=== PATIENT | female | born 1980 | race Caucasian/White ===

== ENCOUNTER 2017-02-14 15:11 | Emergency (ER) | payer MEDICAID ==
[~2017-02-14 15:11] MED LIST: CYMBALTA30 M1 PO; KLO0.5 PO; NEXIUM40 MG PO; NOR10T PO; REQUIP0.5 MG PO; SOM350 PO; ZANTAC 150150 MG PO; ZOL50 PO; ZOLOFT50 MG PO; [UNRECOGNIZED DRUG - CODE] PO
[2017-02-14 17:38] LABS: BASOPHIL % 0.4 % (0-2); PLATELET COUNT 282 x10^3mcL (130-400)
[2017-02-14 17:40] LABS: CARBON DIOXIDE 31.2 mmol/L (21-32); CHLORIDE SERUM 103 mmol/L (98-107); CREATININE SERUM 0.6 mg/dL (0.6-1.0); GFR1 > 60 mL/min; GLUCOSE SERUM 92 mg/dL (74-106); POTASSIUM SERUM 3.1 mmol/L (3.5-5.1); RED CELL DISTRIBUTION WIDTH 17.6 % (11.5-14.5); SODIUM SERUM 140 mmol/L (136-145)
[2017-02-14 17:44] LABS: ALBUMIN 3.5 g/dL (3.4-5.0); ALKALINE PHOSPHATASE 71 U/L (46-116); ALT/SGPT 26 U/L (14-59); AST/SGOT 23 U/L (15-37); BILIRUBIN TOTAL 0.29 mg/dL (0.20-1.00); MAGNESIUM 1.8 mg/dL (1.8-2.4); TOTAL PROTEIN, SERUM 6.8 g/dL (6.4-8.2)
[2017-02-14 19:09] VITALS: BP 122/76
== END 2017-02-14 19:09 | disposition home or self-care (01) ==
LOC: ED 15:11
PROVIDERS: Emergency Medicine
DX: M79.1 Myalgia (principal); E87.6 Hypokalemia; J45.909 Unspecified asthma, uncomplicated; G43.909 Migraine, unspecified, not intractable, without status migrainosus; Z88.0 Allergy status to penicillin
CPT/HCPCS: J1885

== ENCOUNTER 2017-04-24 18:34 | Emergency (ER) | payer MEDICAID ==
[~2017-04-24] VITALS: Ht 165.1 cm; Wt 122.9 kg
[2017-04-24 20:45] LABS: BASOPHIL % 0.4 % (0-2); PLATELET COUNT 254 x10^3mcL (130-400)
[2017-04-24 20:46] LABS: RED CELL DISTRIBUTION WIDTH 17.2 % (11.5-14.5)
[2017-04-24 21:09] LABS: ALBUMIN 3.5 g/dL (3.4-5.0); ALKALINE PHOSPHATASE 66 U/L (46-116); ALT/SGPT 38 U/L (14-59); AMYLASE 31 U/L (25-115); AST/SGOT 32 U/L (15-37); BILIRUBIN TOTAL 0.3 mg/dL (0.20-1.00); CALCIUM 9.1 mg/dL (8.5-10.1); CARBON DIOXIDE 27.9 mmol/L (21-32); CHLORIDE SERUM 102 mmol/L (98-107); CREATININE SERUM 0.7 mg/dL (0.6-1.0); GFR1 > 60 mL/min; GLUCOSE SERUM 99 mg/dL (74-106); LIPASE 104 IU/L (73-393); SODIUM SERUM 139 mmol/L (136-145); TOTAL PROTEIN, SERUM 6.8 g/dL (6.4-8.2)
[2017-04-24 21:11] LABS: POTASSIUM SERUM 2.7 mmol/L (3.5-5.1)
[2017-04-24 23:18] VITALS: BP 143/80
== END 2017-04-24 23:18 | disposition home or self-care (01) ==
LOC: ED 18:34
PROVIDERS: Emergency Medicine
DX: R11.10 Vomiting, unspecified (principal); R19.7 Diarrhea, unspecified; R10.9 Unspecified abdominal pain; G89.29 Other chronic pain; M54.9 Dorsalgia, unspecified; J45.909 Unspecified asthma, uncomplicated; Z88.0 Allergy status to penicillin
CPT/HCPCS: J2270; J2405; J2765; J7030

== ENCOUNTER 2017-06-06 16:08 | Emergency (ER) | payer MEDICAID ==
[2017-06-06 21:37] VITALS: BP 104/62
== END 2017-06-06 21:37 | disposition home or self-care (01) ==
LOC: ED 16:08
DX: G43.909 Migraine, unspecified, not intractable, without status migrainosus (principal); Z88.0 Allergy status to penicillin; Z79.899 Other long term (current) drug therapy
CPT/HCPCS: J1200; J1885; J2765; J3475; J3490; J7030

== ENCOUNTER 2017-06-14 17:56 | Emergency (ER) | payer MEDICAID ==
[~2017-06-14] VITALS: Ht 165.1 cm; Wt 120.2 kg
[2017-06-14 21:27] VITALS: BP 127/78
== END 2017-06-14 21:27 | disposition home or self-care (01) ==
LOC: ED 17:56
DX: G89.29 Other chronic pain (principal); M54.9 Dorsalgia, unspecified; J45.909 Unspecified asthma, uncomplicated; F41.9 Anxiety disorder, unspecified; F32.9 Major depressive disorder, single episode, unspecified; Z79.899 Other long term (current) drug therapy; Z88.0 Allergy status to penicillin; Z90.710 Acquired absence of both cervix and uterus; Z98.890 Other specified postprocedural states
CPT/HCPCS: J1885

== ENCOUNTER 2017-06-25 17:55 | Emergency (ER) | payer MEDICAID ==
[2017-06-25 19:26] VITALS: BP 108/64
== END 2017-06-25 19:26 | disposition home or self-care (01) ==
LOC: ED 17:55
DX: G43.909 Migraine, unspecified, not intractable, without status migrainosus (principal); Z79.899 Other long term (current) drug therapy; Z88.0 Allergy status to penicillin
CPT/HCPCS: J1100; J1885; J2765

== ENCOUNTER 2017-07-27 17:42 | Emergency (ER) | payer MEDICAID ==
[2017-07-27 19:50] LABS: BASOPHIL % 0.5 % (0-2); PLATELET COUNT 251 x10^3mcL (130-400)
[2017-07-27 19:57] LABS: CALCIUM 9.1 mg/dL (8.5-10.1); CARBON DIOXIDE 30.3 mmol/L (21-32); CHLORIDE SERUM 105 mmol/L (98-107); CREATININE SERUM 0.7 mg/dL (0.6-1.0); GFR1 > 60 mL/min; GLUCOSE SERUM 85 mg/dL (74-106); POTASSIUM SERUM 3.8 mmol/L (3.5-5.1); SODIUM SERUM 141 mmol/L (136-145)
[2017-07-27 20:01] LABS: ALBUMIN 3.5 g/dL (3.4-5.0); ALKALINE PHOSPHATASE 57 U/L (46-116); ALT/SGPT 31 U/L (14-59); AST/SGOT 26 U/L (15-37); BILIRUBIN TOTAL 0.25 mg/dL (0.20-1.00); CHOLESTEROL 172 mg/dL (<200); HDL CHOLESTEROL 60 mg/dL (40-60); PHOSPHOROUS 3.6 mg/dL (2.5-4.9); TOTAL PROTEIN, SERUM 7.1 g/dL (6.4-8.2); URIC ACID 4.9 mg/dL (2.6-6.0)
[2017-07-27 21:24] VITALS: BP 117/79
== END 2017-07-27 21:24 | disposition home or self-care (01) ==
LOC: ED 17:42
PROVIDERS: Emergency Medicine
DX: I87.8 Other specified disorders of veins (principal); J45.909 Unspecified asthma, uncomplicated; Z90.711 Acquired absence of uterus with remaining cervical stump; Z88.0 Allergy status to penicillin; Z98.51 Tubal ligation status
CPT/HCPCS: 36415; 83880; J3010

== ENCOUNTER 2017-08-22 14:44 | Emergency (ER) | payer MEDICAID ==
[~2017-08-22] VITALS: Ht 165.1 cm; Wt 119.3 kg
[2017-08-22 16:20] LABS: BASOPHIL % 0.3 % (0-2); PLATELET COUNT 229 x10^3mcL (130-400)
[2017-08-22 16:22] LABS: RED CELL DISTRIBUTION WIDTH 18.3 % (11.5-14.5)
[2017-08-22 16:33] LABS: CARBON DIOXIDE 29.1 mmol/L (21-32); CHLORIDE SERUM 105 mmol/L (98-107); CREATININE SERUM 0.8 mg/dL (0.6-1.0); GFR1 > 60 mL/min; GLUCOSE SERUM 126 mg/dL (74-106); SODIUM SERUM 141 mmol/L (136-145)
[2017-08-22 16:37] LABS: ALBUMIN 3.7 g/dL (3.4-5.0); ALKALINE PHOSPHATASE 93 U/L (46-116); ALT/SGPT 68 U/L (14-59); AST/SGOT 45 U/L (15-37); BILIRUBIN TOTAL 0.3 mg/dL (0.20-1.00); TOTAL PROTEIN, SERUM 7.7 g/dL (6.4-8.2)
[2017-08-22 17:26] VITALS: BP 128/74
== END 2017-08-22 17:35 | disposition home or self-care (01) ==
LOC: ED 14:44
PROVIDERS: Emergency Medicine
DX: J45.901 Unspecified asthma with (acute) exacerbation (principal); R03.0 Elevated blood-pressure reading, without diagnosis of hypertension; Z88.0 Allergy status to penicillin
CPT/HCPCS: 36415; J7613; J7644; Q0092

== ENCOUNTER 2017-09-21 13:16 | Emergency (ER) | payer MEDICAID ==
[2017-09-21 15:41] LABS: BASOPHIL % 0.3 % (0-2); PLATELET COUNT 249 x10^3mcL (130-400); RED CELL DISTRIBUTION WIDTH 18.1 % (11.5-14.5)
[2017-09-21 15:54] LABS: ALBUMIN 3.6 g/dL (3.4-5.0); ALKALINE PHOSPHATASE 65 U/L (46-116); ALT/SGPT 22 U/L (14-59); AST/SGOT 11 U/L (15-37); BILIRUBIN TOTAL 0.8 mg/dL (0.20-1.00); CALCIUM 9.1 mg/dL (8.5-10.1); CARBON DIOXIDE 29.1 mmol/L (21-32); CHLORIDE SERUM 102 mmol/L (98-107); CREATININE SERUM 0.8 mg/dL (0.6-1.0); GFR1 > 60 mL/min; GLUCOSE SERUM 98 mg/dL (74-106); LIPASE 101 IU/L (73-393); POTASSIUM SERUM 3.4 mmol/L (3.5-5.1); SODIUM SERUM 138 mmol/L (136-145); TOTAL PROTEIN, SERUM 7.3 g/dL (6.4-8.2)
[2017-09-21 16:46] VITALS: BP 145/98
== END 2017-09-21 16:46 | disposition home or self-care (01) ==
LOC: ED 13:16
PROVIDERS: Emergency Medicine
DX: R10.11 Right upper quadrant pain (principal); J45.909 Unspecified asthma, uncomplicated; Z88.0 Allergy status to penicillin
CPT/HCPCS: 36415; J1885; J2765

== ENCOUNTER 2017-10-11 21:11 | Emergency (ER) | payer MEDICAID ==
[2017-10-11 21:33] VITALS: BP 116/71
== END 2017-10-11 22:30 | disposition home or self-care (01) ==
LOC: ED 21:11
DX: B34.9 Viral infection, unspecified (principal); F17.200 Nicotine dependence, unspecified, uncomplicated; Z90.49 Acquired absence of other specified parts of digestive tract

== ENCOUNTER 2017-10-19 17:01 | Emergency (ER) | payer MEDICAID ==
[~2017-10-19] VITALS: Ht 165.1 cm; Wt 119.7 kg
[2017-10-19 17:04] VITALS: Ht 165.1 cm; Wt 119.7 kg
[2017-10-19 21:26] VITALS: BP 132/74
== END 2017-10-19 21:26 | disposition home or self-care (01) ==
LOC: ED 17:01
DX: K44.9 Diaphragmatic hernia without obstruction or gangrene (principal); J45.909 Unspecified asthma, uncomplicated; Z88.0 Allergy status to penicillin
CPT/HCPCS: J2270; Q0162

== ENCOUNTER 2017-11-22 15:59 | Emergency (ER) | payer MEDICAID ==
[~2017-11-22] VITALS: Ht 165.1 cm; Wt 118.4 kg
[2017-11-22 17:03] VITALS: Ht 165.1 cm; Wt 118.4 kg
[2017-11-22 21:03] VITALS: BP 119/71
== END 2017-11-22 21:03 | disposition home or self-care (01) ==
LOC: ED 15:59
DX: G89.29 Other chronic pain (principal); M54.5 Low back pain; J45.909 Unspecified asthma, uncomplicated; Z88.0 Allergy status to penicillin
CPT/HCPCS: J1885; J7512

== ENCOUNTER 2017-12-06 18:38 | Emergency (ER) | payer MEDICAID ==
[~2017-12-06] VITALS: Ht 165.1 cm; Wt 119.3 kg
[2017-12-06 18:54] VITALS: Ht 165.1 cm; Wt 119.3 kg
[2017-12-06 21:18] VITALS: BP 135/65
== END 2017-12-06 21:18 | disposition home or self-care (01) ==
LOC: ED 18:38
DX: J44.9 Chronic obstructive pulmonary disease, unspecified (principal); F41.9 Anxiety disorder, unspecified; Z90.710 Acquired absence of both cervix and uterus; Z88.0 Allergy status to penicillin
CPT/HCPCS: J1885; J7512; J7613; J7644

== ENCOUNTER 2017-12-29 10:43 | Emergency (ER) | payer MEDICAID ==
[~2017-12-29] VITALS: Ht 172.7 cm; Wt 121.1 kg
[2017-12-29 11:19] VITALS: Ht 172.7 cm; Wt 121.1 kg
[2017-12-29 14:50] VITALS: BP 107/58
== END 2017-12-29 14:50 | disposition home or self-care (01) ==
LOC: ED 10:43
DX: S93.601A Unspecified sprain of right foot, initial encounter (principal); X58.XXXA Exposure to other specified factors, initial encounter; Y93.89 Activity, other specified; Y99.8 Other external cause status; Y92.89 Other specified places as the place of occurrence of the external cause

== ENCOUNTER 2018-02-15 13:18 | Emergency (ER) | payer MEDICAID ==
[~2018-02-15] VITALS: Ht 165.1 cm; Wt 120.2 kg
[2018-02-15 13:44] VITALS: Ht 165.1 cm; Wt 120.2 kg
[2018-02-15 17:04] VITALS: BP 112/65
== END 2018-02-15 17:04 | disposition home or self-care (01) ==
LOC: ED 13:18
DX: G43.909 Migraine, unspecified, not intractable, without status migrainosus (principal); J45.909 Unspecified asthma, uncomplicated; R11.10 Vomiting, unspecified; G47.00 Insomnia, unspecified; Z88.0 Allergy status to penicillin
CPT/HCPCS: J1200; J2765; J7030

== ENCOUNTER 2018-03-29 21:29 | Emergency (ER) | payer MEDICAID ==
[~2018-03-29] VITALS: Ht 165.1 cm; Wt 122.9 kg
[2018-03-29 21:36] VITALS: Ht 165.1 cm; Wt 122.9 kg
[2018-03-30 03:21] VITALS: BP 140/75
== END 2018-03-30 03:21 | disposition home or self-care (01) ==
LOC: ED 21:29
DX: M54.42 Lumbago with sciatica, left side (principal); M54.41 Lumbago with sciatica, right side; J45.909 Unspecified asthma, uncomplicated; Z88.0 Allergy status to penicillin; Z90.710 Acquired absence of both cervix and uterus
CPT/HCPCS: J1885

== ENCOUNTER 2018-05-29 16:39 | Emergency (ER) | payer MEDICAID ==
[~2018-05-29] VITALS: Ht 165.1 cm; Wt 125.6 kg
[2018-05-29 16:45] VITALS: Ht 165.1 cm; Wt 125.6 kg
[2018-05-29 18:03] VITALS: BP 128/89
== END 2018-05-29 18:21 | disposition home or self-care (01) ==
LOC: ED 16:39
DX: M54.30 Sciatica, unspecified side (principal); J45.909 Unspecified asthma, uncomplicated; F41.9 Anxiety disorder, unspecified; F32.9 Major depressive disorder, single episode, unspecified; Z90.49 Acquired absence of other specified parts of digestive tract; Z90.721 Acquired absence of ovaries, unilateral
CPT/HCPCS: J1885; J3010; Q0162

== ENCOUNTER 2018-06-06 22:33 | Emergency (ER) | payer MEDICAID ==
[~2018-06-06] VITALS: Ht 165.1 cm; Wt 127.9 kg
[2018-06-07 04:35] LABS: urine erythrocyte NEGATIVE (NEGATIVE)
[2018-06-07 04:42] LABS: microscopic required? YES
[2018-06-07 05:30] VITALS: BP 128/88
== END 2018-06-07 05:40 | disposition home or self-care (01) ==
LOC: ED 22:33
PROVIDERS: Emergency Medicine
DX: G89.29 Other chronic pain (principal); M54.9 Dorsalgia, unspecified; J45.909 Unspecified asthma, uncomplicated; Z88.0 Allergy status to penicillin; Z90.710 Acquired absence of both cervix and uterus
CPT/HCPCS: J2270; Q0162

== ENCOUNTER 2018-06-14 16:41 | Emergency (ER) | payer MEDICAID ==
[~2018-06-14] VITALS: Ht 165.1 cm; Wt 126.1 kg
[2018-06-14 16:47] VITALS: Ht 165.1 cm; Wt 126.1 kg
[2018-06-14 19:52] VITALS: BP 141/92
== END 2018-06-14 19:52 | disposition home or self-care (01) ==
LOC: ED 16:41
DX: K21.9 Gastro-esophageal reflux disease without esophagitis (principal); K27.9 Peptic ulcer, site unspecified, unspecified as acute or chronic, without hemorrhage or perforation; J45.909 Unspecified asthma, uncomplicated; Z88.0 Allergy status to penicillin; Z90.49 Acquired absence of other specified parts of digestive tract; Z90.710 Acquired absence of both cervix and uterus; Z90.89 Acquired absence of other organs
CPT/HCPCS: Q0162

== ENCOUNTER 2018-06-27 14:38 | Emergency (ER) | payer MEDICAID ==
[~2018-06-27] VITALS: Ht 165.1 cm; Wt 130.2 kg
[2018-06-27 16:49] VITALS: BP 135/84
== END 2018-06-27 16:49 | disposition home or self-care (01) ==
LOC: ED 14:38
DX: G89.29 Other chronic pain (principal); R51 Headache; J45.909 Unspecified asthma, uncomplicated; F41.9 Anxiety disorder, unspecified; F32.9 Major depressive disorder, single episode, unspecified; Z90.49 Acquired absence of other specified parts of digestive tract; Z90.710 Acquired absence of both cervix and uterus
CPT/HCPCS: J1200; J1885; J2765

== ENCOUNTER 2018-09-02 20:52 | Emergency (ER) | payer MEDICAID ==
[~2018-09-02] VITALS: Ht 165.1 cm; Wt 134.3 kg
[2018-09-02 21:01] VITALS: Ht 165.1 cm; Wt 134.3 kg
[2018-09-02 21:35] LABS: BASOPHIL % 0.8 % (0-2); PLATELET COUNT 238 x10^3mcL (130-400)
[2018-09-02 21:36] LABS: RED CELL DISTRIBUTION WIDTH 14.7 % (11.5-14.5)
[2018-09-02 21:45] LABS: CALCIUM 8.9 mg/dL (8.5-10.1); CHLORIDE SERUM 105 mmol/L (98-107); CREATININE SERUM 0.8 mg/dL (0.6-1.0); GFR1 > 60 mL/min; GLUCOSE SERUM 95 mg/dL (74-106); POTASSIUM SERUM 3.1 mmol/L (3.5-5.1); SODIUM SERUM 135 mmol/L (136-145)
[2018-09-02 21:49] LABS: ALBUMIN 3.6 g/dL (3.4-5.0); ALKALINE PHOSPHATASE 71 U/L (46-116); AST/SGOT 23 U/L (15-37); BILIRUBIN TOTAL 0.23 mg/dL (0.20-1.00); TOTAL PROTEIN, SERUM 7.2 g/dL (6.4-8.2)
[2018-09-02 22:02] LABS: ALT/SGPT 26 U/L (14-59)
[2018-09-02 22:36] VITALS: BP 144/82
== END 2018-09-02 22:36 | disposition home or self-care (01) ==
LOC: ED 20:52
PROVIDERS: Emergency Medicine
DX: R11.2 Nausea with vomiting, unspecified (principal); M79.10 Myalgia, unspecified site; J45.909 Unspecified asthma, uncomplicated; F41.9 Anxiety disorder, unspecified; F32.9 Major depressive disorder, single episode, unspecified; Z88.0 Allergy status to penicillin; Z98.890 Other specified postprocedural states
CPT/HCPCS: J1885; J2405; J7030

== ENCOUNTER 2018-11-02 14:45 | Emergency (ER) | payer MEDICAID ==
[~2018-11-02] VITALS: Ht 165.1 cm; Wt 129.3 kg
[2018-11-02 14:59] VITALS: Ht 165.1 cm; Wt 129.3 kg
[2018-11-02 18:08] LABS: BASOPHIL % 0.4 % (0-2); PLATELET COUNT 240 x10^3mcL (130-400)
[2018-11-02 18:22] LABS: RED CELL DISTRIBUTION WIDTH 15.9 % (11.5-14.5)
[2018-11-02 18:35] LABS: CALCIUM 9.1 mg/dL (8.5-10.1); CARBON DIOXIDE 29.1 mmol/L (21-32); CHLORIDE SERUM 100 mmol/L (98-107); CREATININE SERUM 0.9 mg/dL (0.6-1.0); GFR1 > 60 mL/min; GLUCOSE SERUM 89 mg/dL (74-106); POTASSIUM SERUM 3.9 mmol/L (3.5-5.1); SODIUM SERUM 137 mmol/L (136-145)
[2018-11-02 18:46] LABS: ALBUMIN 3.6 g/dL (3.4-5.0); ALKALINE PHOSPHATASE 80 U/L (46-116); ALT/SGPT 27 U/L (14-59); AST/SGOT 19 U/L (15-37); BILIRUBIN TOTAL 0.21 mg/dL (0.20-1.00); LIPASE 103 IU/L (73-393); TOTAL PROTEIN, SERUM 7.6 g/dL (6.4-8.2)
[2018-11-02 19:44] LABS: urine erythrocyte NEGATIVE (NEGATIVE)
[2018-11-02 19:52] LABS: microscopic required? NO
[2018-11-02 20:00] VITALS: BP 125/88
== END 2018-11-02 20:00 | disposition home or self-care (01) ==
LOC: ED 14:45
PROVIDERS: Emergency Medicine
DX: K21.9 Gastro-esophageal reflux disease without esophagitis (principal); J45.909 Unspecified asthma, uncomplicated; F32.9 Major depressive disorder, single episode, unspecified; E66.01 Morbid (severe) obesity due to excess calories; F41.9 Anxiety disorder, unspecified; Z68.42 Body mass index [BMI] 45.0-49.9, adult; Z87.19 Personal history of other diseases of the digestive system; Z88.0 Allergy status to penicillin; Z90.711 Acquired absence of uterus with remaining cervical stump
CPT/HCPCS: J0500; Q0092

== ENCOUNTER 2019-06-05 22:37 | Emergency (ER) | payer OTHER ==
[~2019-06-05] VITALS: Ht 165.1 cm; Wt 123.8 kg
[2019-06-05 22:40] VITALS: Ht 165.1 cm; Wt 123.8 kg
[2019-06-06 00:59] LABS: BASOPHIL % 0.4 % (0-2); PLATELET COUNT 270 x10^3mcL (130-400)
[2019-06-06 01:01] LABS: RED CELL DISTRIBUTION WIDTH 15.9 % (11.5-14.5)
[2019-06-06 01:11] LABS: CALCIUM 8.6 mg/dL (8.5-10.1); CHLORIDE SERUM 104 mmol/L (98-107); CREATININE SERUM 0.9 mg/dL (0.6-1.0); GFR1 > 60 mL/min; GLUCOSE SERUM 98 mg/dL (74-106); POTASSIUM SERUM 3.4 mmol/L (3.5-5.1); SODIUM SERUM 140 mmol/L (136-145)
[2019-06-06 01:27] LABS: ALBUMIN 3.8 g/dL (3.4-5.0); ALKALINE PHOSPHATASE 61 U/L (46-116); ALT/SGPT 54 U/L (14-59); AST/SGOT 52 U/L (15-37); BILIRUBIN TOTAL 0.29 mg/dL (0.20-1.00); LIPASE 92 IU/L (73-393); TOTAL PROTEIN, SERUM 7.4 g/dL (6.4-8.2)
[2019-06-06 02:08] VITALS: BP 118/67
== END 2019-06-06 02:08 | disposition home or self-care (01) ==
LOC: ED 22:37
PROVIDERS: Emergency Medicine
DX: K52.9 Noninfective gastroenteritis and colitis, unspecified (principal); J45.909 Unspecified asthma, uncomplicated; F41.9 Anxiety disorder, unspecified; F32.9 Major depressive disorder, single episode, unspecified; Z88.0 Allergy status to penicillin; Z90.710 Acquired absence of both cervix and uterus; Z90.49 Acquired absence of other specified parts of digestive tract
CPT/HCPCS: J2270; J2405; J7030

== ENCOUNTER 2019-06-20 22:06 | Emergency (ER) | payer OTHER ==
[~2019-06-20] VITALS: Ht 172.7 cm; Wt 119.3 kg
[2019-06-20 22:11] VITALS: Ht 172.7 cm; Wt 119.3 kg
[2019-06-21 00:53] VITALS: BP 103/55
== END 2019-06-21 00:53 | disposition home or self-care (01) ==
LOC: ED 22:06
DX: R51 Headache (principal); R11.0 Nausea; H53.149 Visual discomfort, unspecified; J45.909 Unspecified asthma, uncomplicated; F41.9 Anxiety disorder, unspecified; F32.9 Major depressive disorder, single episode, unspecified; Z98.890 Other specified postprocedural states; Z88.0 Allergy status to penicillin; Z90.49 Acquired absence of other specified parts of digestive tract; Z90.710 Acquired absence of both cervix and uterus
CPT/HCPCS: J1200; J1885; J2270; J2765; J7030

== ENCOUNTER 2019-08-19 16:35 | Emergency (ER) | payer OTHER, MEDICAID ==
[~2019-08-19] VITALS: Ht 165.1 cm; Wt 119.7 kg
[2019-08-19 17:00] VITALS: Ht 165.1 cm; Wt 119.7 kg
[2019-08-19 20:00] VITALS: BP 117/62
== END 2019-08-19 20:00 | disposition home or self-care (01) ==
LOC: ED 16:35
DX: G43.909 Migraine, unspecified, not intractable, without status migrainosus (principal); J45.909 Unspecified asthma, uncomplicated; F41.9 Anxiety disorder, unspecified; F32.9 Major depressive disorder, single episode, unspecified; Z90.49 Acquired absence of other specified parts of digestive tract; Z90.711 Acquired absence of uterus with remaining cervical stump; Z88.0 Allergy status to penicillin
CPT/HCPCS: J1200; J1885; J2765; J3010

== ENCOUNTER 2019-09-03 03:44 | Emergency (ER) | payer OTHER ==
[~2019-09-03] VITALS: Ht 165.1 cm; Wt 117.7 kg
[2019-09-03 03:50] VITALS: Ht 165.1 cm; Wt 117.7 kg
[2019-09-03 05:03] VITALS: BP 118/76
== END 2019-09-03 05:03 | disposition home or self-care (01) ==
LOC: ED 03:44
DX: G89.29 Other chronic pain (principal); M54.6 Pain in thoracic spine; M54.5 Low back pain; J45.909 Unspecified asthma, uncomplicated; F41.9 Anxiety disorder, unspecified; F32.9 Major depressive disorder, single episode, unspecified; Z90.711 Acquired absence of uterus with remaining cervical stump; Z88.0 Allergy status to penicillin
CPT/HCPCS: J2270

== ENCOUNTER 2019-09-30 21:51 | Emergency (ER) | payer OTHER ==
[~2019-09-30] VITALS: Ht 165.1 cm; Wt 117.5 kg
[2019-09-30 21:59] VITALS: Ht 165.1 cm; Wt 117.5 kg
[2019-09-30 23:48] LABS: CALCIUM 8.8 mg/dL (8.5-10.1); CARBON DIOXIDE 29.6 mmol/L (21-32); CHLORIDE SERUM 105 mmol/L (98-107); CREATININE SERUM 0.7 mg/dL (0.6-1.0); GFR1 > 60 mL/min; GLUCOSE SERUM 112 mg/dL (74-106); POTASSIUM SERUM 4.1 mmol/L (3.5-5.1); SODIUM SERUM 142 mmol/L (136-145)
[2019-09-30 23:50] LABS: BASOPHIL % 0.1 % (0-2); PLATELET COUNT 97 x10^3mcL (130-400); RED CELL DISTRIBUTION WIDTH 14.4 % (11.5-14.5)
[2019-09-30 23:56] LABS: ALBUMIN 3.7 g/dL (3.4-5.0); ALKALINE PHOSPHATASE 54 U/L (46-116); ALT/SGPT 31 U/L (14-59); AST/SGOT 18 U/L (15-37); BILIRUBIN TOTAL 0.3 mg/dL (0.20-1.00); TOTAL PROTEIN, SERUM 7.2 g/dL (6.4-8.2)
[2019-09-30 23:58] LABS: T3 TOTAL 1.15 ng/mL
[2019-10-01] LABS: FREE T4 1.13 ng/dL (0.76-1.46); FREE THYROXINE INDEX 3.4 ug/dL (1.4-4.5)
[2019-10-01 00:49] LABS: AMPHETAMINE QUAL UR POSITIVE (See below)
[2019-10-01 03:41] VITALS: BP 109/72
== END 2019-10-01 03:41 | disposition home or self-care (01) ==
LOC: ED 21:51
PROVIDERS: Emergency Medicine
DX: F39 Unspecified mood [affective] disorder (principal); G89.29 Other chronic pain; J45.909 Unspecified asthma, uncomplicated; Z90.711 Acquired absence of uterus with remaining cervical stump; Z90.49 Acquired absence of other specified parts of digestive tract; Z88.0 Allergy status to penicillin
CPT/HCPCS: 36415; 84439; G0480

== ENCOUNTER 2019-10-29 00:03 | Emergency (ER) | payer OTHER, MEDICAID ==
[~2019-10-29] VITALS: Ht 165.1 cm; Wt 117.0 kg
[2019-10-29 00:07] VITALS: Ht 165.1 cm; Wt 117.0 kg
[2019-10-29 02:45] VITALS: BP 135/79
== END 2019-10-29 02:45 | disposition home or self-care (01) ==
LOC: ED 00:03
DX: G43.909 Migraine, unspecified, not intractable, without status migrainosus (principal); J45.909 Unspecified asthma, uncomplicated; Z90.89 Acquired absence of other organs; Z90.711 Acquired absence of uterus with remaining cervical stump; Z90.710 Acquired absence of both cervix and uterus; Z88.0 Allergy status to penicillin
CPT/HCPCS: J0780; J1200; J1885; J2270

== ENCOUNTER 2019-11-29 13:43 | Emergency (ER) | payer OTHER ==
[~2019-11-29] VITALS: Ht 170.2 cm; Wt 118.4 kg
[2019-11-29 13:54] VITALS: Ht 170.2 cm; Wt 118.4 kg
[2019-11-29 21:40] VITALS: BP 124/81
== END 2019-11-29 21:40 | disposition home or self-care (01) ==
LOC: ED 13:43
DX: B34.9 Viral infection, unspecified (principal); Z88.0 Allergy status to penicillin
CPT/HCPCS: 87804; J1885

== ENCOUNTER 2019-12-21 07:34 | Emergency (ER) | payer OTHER ==
[~2019-12-21] VITALS: Ht 165.1 cm; Wt 120.2 kg
[2019-12-21 07:53] VITALS: Ht 165.1 cm; Wt 120.2 kg
[2019-12-21 14:12] VITALS: BP 106/73
== END 2019-12-21 14:12 | disposition home or self-care (01) ==
LOC: ED 07:34
DX: G43.909 Migraine, unspecified, not intractable, without status migrainosus (principal); J45.909 Unspecified asthma, uncomplicated; R11.0 Nausea; M79.7 Fibromyalgia; Z90.49 Acquired absence of other specified parts of digestive tract; Z90.711 Acquired absence of uterus with remaining cervical stump; Z88.0 Allergy status to penicillin
CPT/HCPCS: J1100; J1885; J2765; J3475; J7030

== ENCOUNTER 2019-12-27 13:32 | Emergency (ER) | payer OTHER ==
[~2019-12-27] VITALS: Ht 165.1 cm; Wt 117.0 kg
[2019-12-27 13:51] VITALS: Ht 165.1 cm; Wt 117.0 kg
[2019-12-27 17:29] VITALS: BP 122/62
== END 2019-12-27 17:29 | disposition home or self-care (01) ==
LOC: ED 13:32
DX: G43.909 Migraine, unspecified, not intractable, without status migrainosus (principal); J45.909 Unspecified asthma, uncomplicated; Z90.711 Acquired absence of uterus with remaining cervical stump; Z90.49 Acquired absence of other specified parts of digestive tract; Z88.0 Allergy status to penicillin
CPT/HCPCS: J1200; J1885; J2765; J3010

== ENCOUNTER 2020-01-05 03:55 | Emergency (ER) | payer OTHER ==
[~2020-01-05] VITALS: Ht 165.1 cm; Wt 117.7 kg
[2020-01-05 04:05] VITALS: Ht 165.1 cm; Wt 117.7 kg
[2020-01-05 06:57] LABS: BASOPHIL % 0.2 % (0-2); PLATELET COUNT 237 x10^3mcL (130-400)
[2020-01-05 07:01] LABS: RED CELL DISTRIBUTION WIDTH 14.8 % (11.5-14.5)
[2020-01-05 07:13] LABS: CARBON DIOXIDE 30.7 mmol/L (21-32); CHLORIDE SERUM 104 mmol/L (98-107); CREATININE SERUM 0.6 mg/dL (0.6-1.0); GFR1 > 60 mL/min; GLUCOSE SERUM 108 mg/dL (74-106); POTASSIUM SERUM 3.7 mmol/L (3.5-5.1); SODIUM SERUM 139 mmol/L (136-145)
[2020-01-05 07:15] LABS: ALBUMIN 3.6 g/dL (3.4-5.0); ALKALINE PHOSPHATASE 68 U/L (46-116); ALT/SGPT 26 U/L (14-59); AMYLASE 36 U/L (25-115); AST/SGOT 14 U/L (15-37); LIPASE 112 IU/L (73-393)
[2020-01-05 09:26] LABS: AMPHETAMINE QUAL UR POSITIVE (See below)
[2020-01-05 10:53] VITALS: BP 132/72
== END 2020-01-05 10:50 | disposition home or self-care (01) ==
LOC: ED 03:55
PROVIDERS: Specialist
DX: R10.13 Epigastric pain (principal); F15.90 Other stimulant use, unspecified, uncomplicated; J45.909 Unspecified asthma, uncomplicated; Z87.11 Personal history of peptic ulcer disease; Z98.890 Other specified postprocedural states; Z90.711 Acquired absence of uterus with remaining cervical stump; Z88.0 Allergy status to penicillin
CPT/HCPCS: J1885; J3010; J3475; Q0092